=== PATIENT | female | born 1980 | race Caucasian/White ===

== ENCOUNTER 2016-05-03 00:15 | Emergency (ER) | payer MEDICAID ==
[~2016-05-03] VITALS: Ht 170.2 cm; Wt 108.9 kg
[2016-05-03 00:44] VITALS: BP 127/68
--- NOTE | 2016-05-03 01:49 | NUR ---
AMBULATED TO ER BED 3
--- NOTE | 2016-05-03 01:52 | NUR ---
PATIENT PRESENTS TO ED WITH LEFT HEAD PRESSURE AND LEFT EAR PAIN THAT RADIATES TO NECK. DENIES N/V/D; SKIN IS PINK/WARM/DRY; AAOX4 WITH EVEN AND STEADY GAIT; LUNGS CLEAR BL; HR EVEN AND REGULAR; PT DENIES ANY FEVER, CP, SOB, OR COUGH AT THIS TIME; PATIENT STATES PAIN OF 10/10 AT THIS TIME; VSS; PATIENT POSITIONED FOR COMFORT; HOB ELEVATED; BEDRAILS UP X2; BED DOWN. ER MD MADE AWARE OF PT STATUS.
--- NOTE | 2016-05-03 02:15 | NUR ---
PT IN RADIOLOGY DEPT.
[2016-05-03 03:44] VITALS: BP 124/64
--- NOTE | 2016-05-03 03:44 | NUR ---
Lula dawson in EDM - 05/03/16 at 0346 by JUDITH PATIENT ELOPED FROM FACILITY. DISCHARGE INSTRUCTIONS NOT GIVEN TO PATIENT. DR. LAINEZ NOTIFIED.
--- NOTE | 2016-05-03 03:44 | NUR ---
PT NOT IN BED, NO WHERE TO BE FOUND. LEFT WITHOUT DISCHARGE INSTRUCTIONS. DR. LAINEZ AWARE.
--- NOTE | 2016-05-03 03:49 | NUR ---
ATTEMPT TO CALL PT WITH PHONE NUMBER FROM [employer] . CALLED TWICE NO ANSWER.
--- NOTE | 2016-05-03 05:34 | NUR ---
TRIED TO CALL THE PHONE NUMBER ON THE PATIENT'S FACESHEET BUT IT DIRECTED ME RIGHT AWAY TO THE VOICEMAIL BOX. I LEFT A MESSAGE NOTIFYING THAT SHE HAS A PRESCRITPTION AND IF SHE CAN COME AND GET IT. CHARGE NURSE AWARE.
[2016-09-12] MEDS ORDERED: QUETIAPINE FUMA25 M1 PO (08:14)
== END 2016-05-03 03:44 | disposition home or self-care (01) ==
LOC: MED 00:15
DX: B37.3 Candidiasis of vulva and vagina (principal); R51 Headache; R03.0 Elevated blood-pressure reading, without diagnosis of hypertension; Z88.5 Allergy status to narcotic agent

== ENCOUNTER 2016-09-10 10:28 | Inpatient (IN) | payer MEDICAID ==
[~2016-09-10] VITALS: Ht 175.3 cm; Wt 108.9 kg
--- NOTE | 2016-09-10 10:28 | NUR ---
Dr. Uribe evaluating patient at bedside.
--- NOTE | 2016-09-10 10:28 | NUR ---
1021--Patient was BIBA and taken to bed 03 via gurney per EMS. [place] [employer] at bedside; [employer] at bedside.
[2016-09-10 10:30] VITALS: BP 133/79
[2016-09-10] MEDS ORDERED: NACL 0.9% 1,000 ML IV ONE (10:30)
--- NOTE | 2016-09-10 10:30 | NUR ---
[place] [employer] PLACED PATIENT ON 5150 HOLD
--- NOTE | 2016-09-10 10:30 | NUR ---
PATIENT FROM HOME.ALOC,WALKING OUTSIDE IN THE STREET YELLING AT EVERYBODY WHERE CARS ARE.HEARING VOICES. ABLE TO SAY HER NAME AND BIRTHDATE. NOT TAKING HER MEDS. DENIES SUICIDAL IDEATION. BS FIELD 147. HX: BIPOLAR AND SCHIZO.DENIES N/V/D; SKIN IS PINK/WARM/DRY; ALERT AND AWAKE WITH EVEN AND STEADY GAIT; LUNGS CLEAR BL; HR EVEN AND REGULAR; PT DENIES ANY FEVER, CP, SOB, OR COUGH AT THIS TIME; PATIENT STATES PAIN OF 0/10 AT THIS TIME;PATIENT POSITIONED FOR COMFORT; HOB ELEVATED; BEDRAILS UP X2; BED DOWN.
--- NOTE | 2016-09-10 10:41 | NUR ---
XRAY at bedside.
--- NOTE | 2016-09-10 10:46 | NUR ---
Security at bedside to collect belongings.
[2016-09-10 11:36] LABS: BASOPHILS # (AUTO) 0.2 K/uL (0.00-0.22); BASOPHILS % (AUTO) 1.2 % (0.0-2.0); EOSINOPHILS # (AUTO) 0.4 K/uL (0-0.4); HEMATOCRIT 34.2 % (36-48); HEMOGLOBIN 11.7 g/dL (12.0-16.0); LYMPHOCYTES # (AUTO) 1.8 K/uL (2.5-16.5); LYMPHOCYTES % (AUTO) 13.8 % (20.5-51.1); MEAN CORPUSCULAR HEMOGLOBIN 28 pg (27-31); MEAN CORPUSCULAR HGB CONC 34 g/dL (33-37); MEAN CORPUSCULAR VOLUME 83 fL (80-94); MONOCYTES # (AUTO) 0.8 K/uL (0.8-1.0); MONOCYTES % (AUTO) 5.8 % (1.7-9.3); NEUTROPHILS # (AUTO) 9.9 K/uL (1.8-7.7); NEUTROPHILS % (AUTO) 76.2 % (42.2-75.2); PLATELET COUNT (AUTO) 255 K/uL (140-450); RED BLOOD CELL COUNT(AUTO) 4.13 MIL/uL (4.20-5.40); RED CELL DISTRIBUTION WIDTH 13.5 % (11.6-13.7); WHITE BLOOD COUNT (AUTO) 13.1 K/uL (4.8-10.8)
--- NOTE | 2016-09-10 11:44 | NUR ---
PT REFUSED TO GIVE URINE SPECIMEN.
[2016-09-10 11:48] LABS: INR 1.1 (0.8-1.2); PARTIAL THROMBOPLASTIN TIME 25.9 secs (22-35.6); PROTHROMBIN TIME 11.3 secs (10.8-13.4)
[2016-09-10 11:51] LABS: ALANINE AMINOTRANSFERASE 100 U/L (12-78); ALBUMIN 3.7 g/dL (3.4-5.0); ALCOHOL, BLOOD < 3 mg/dL (<3); ALKALINE PHOSPHATASE 73 U/L (46-116); ANION GAP 13.9 (8-16); ASPARTATE AMINOTRANSFERASE 97 U/L (15-37); BILIRUBIN,DIRECT 0.2 mg/dL (0.0-0.3); CALCIUM 8.1 mg/dL (8.5-10.1); CHLORIDE 103 mmol/L (98-107); CREATININE 0.9 mg/dL (0.6-1.3); GFR ARICAN-AMERICAN 91 mL/min (>90); GFR NON ARICAN-AMERICAN 75 mL/min (>90); GLUCOSE 99 mg/dL (74-106); SODIUM SERUM 139 mmol/L (136-145); TOTAL BILIRUBIN 0.6 mg/dL (0.0-1.0); TOTAL PROTEIN, SERUM 8.6 g/dL (6.4-8.2); UREA NITROGEN, BLOOD 16 mg/dL (7-18)
[2016-09-10 11:52] LABS: POTASSIUM 2.9 mmol/L (3.5-5.1)
[2016-09-10] MEDS ORDERED: POTASSIUM CHLORIDE 20% 40 MEQ/15 ML UDC PO ONE (12:05)
--- NOTE | 2016-09-10 12:15 | NUR ---
ON LOWER EXTREMITIES HAS RED SPOTS AND ITCHING , PT SCRATCH IT ALL THE TIME DR NETTLES INFORM .ORDER RECEIVED.
--- NOTE | 2016-09-10 12:19 | NUR ---
PT RESTING ON BED;CHECKED FOR CIRCULATION ON UPPER AND LOWER EXTREMITIES;NO COMPROMISE CIRCULATION NOTED;NO BRUISE NOTED;WILL CONTIUE TO MONITOR PT.
[2016-09-10 12:43] LABS: APPEARANCE,URINE CLEAR (CLEAR); BILIRUBIN,URINE 1+ (NEGATIVE); BLOOD, URINE 2+ (NEGATIVE); COLOR,URINE YELLOW (YELLOW); LEUKOCYTE ESTERASE ,URINE NEGATIVE (NEGATIVE); NITRITE, URINE NEGATIVE (NEGATIVE); PROTEIN,URINE TRACE (NEGATIVE); UGLUCOSE NEGATIVE (NEGATIVE); UROBILINOGEN,URINE 0.2 EU/dL (0.2 - 1)
[2016-09-10 12:57] LABS: ICTOTEST NEGATIVE (NEGATIVE)
[2016-09-10 12:58] LABS: BACTERIA,URINE 1+ /HPF (None Seen); MUCUS,URINE 3+ /LPF (None Seen); RBC,URINE 0-5 (RARE) /HPF (0-5); SQUAMOUS EPITHELIAL CELL,UR 0-3 (FEW) /LPF (0-3 (FEW)); WBC,URINE 0-5 (RARE) /HPF (0-5)
[2016-09-10 12:59] LABS: AMPHETAMINE, URINE POS. ng/ml (NEG <=1000); BARBITURATE, URINE NEG. ng/ml (NEG <=200); BENZODIAZEPINE, URINE NEG. ng/mL (NEG <=200); CANNABINOID, URINE NEG. ng/mL (NEG <=50); COCAINE, URINE NEG. ng/mL (NEG <=300); OPIATE, URINE NEG. ng/mL (NEG <=2000); PHENCYCLIDINE SCREEN,URINE NEG. ng/mL (NEG <=25)
--- NOTE | 2016-09-10 13:10 | NUR ---
PT RESTING ON BED;CHECKED RESTRAINTS;CHECKED UPPER AND LOWER EXTREMITIES;NO COMPROMISE CIRCULATION NOTED;SKIN IS INTACT.
--- NOTE | 2016-09-10 13:44 | NUR ---
RESTRAINT REMOVED;PT IS CALM AND RESTING ON BED QUIETLY;W/GOOD CIRCULATION ON UPPER AND LOWER EXTREMITIES;SKIN INTACT;PT ABLE TO MOVE ALL EXTREMITIES;WILL CONTOINUE TO MONITOR PT.
[2016-09-10] MEDS ORDERED: LORazepam 2 MG/ML VIAL IVP ONE (14:05)
[2016-09-10] MEDS ORDERED: ONDANSETRON 4 MG/2 ML VIAL IVP PRN (14:10)
[2016-09-10] MEDS ORDERED: ACETAMINOPHEN 325 MG TAB PO PRN (14:10)
[2016-09-10] MEDS ORDERED: MORPHINE SULFATE 2 MG/ML SYR IVP PRN (14:10)
--- NOTE | 2016-09-10 14:16 | NUR ---
Patient taken to CT via [facility].
--- NOTE | 2016-09-10 14:27 | NUR ---
Patient back from CT via [facility].
[2016-09-10] MEDS ORDERED: cefTRIAXone 2,000 MG in DEXTROSE 5% 100 ML IV ONE (14:30)
--- NOTE | 2016-09-10 15:01 | NUR ---
Patient will be admitted to care of DR KWOK. Admited to ICU. Will go to room 3. Belongings list completed. Report to REINA CASTANEDA.
--- NOTE | 2016-09-10 15:05 | NUR ---
RECEIVED FROM ER VIA [facility]. SHE AWAKE AND ALERT ORIENTED X3 . SHE IS UNABLE TO IDENTIFY THE DAY AND DATE. ABLE TO WALK FROM [place] TO BED. SHE IS ON ROOM AIR O2 98% . SKIN DRY AND WARM TO TOUCH COLOR IS DARK COOK ,BREATH SOUND CLEAR ABDOMEN SOFT B/S ACTIVE.
[2016-09-10 15:18] VITALS: BP 137/84
[2016-09-10 15:41] LABS: FREE T4 (FREE THYROXINE) 1.6 ng/dL (0.76-1.46); MAGNESIUM 2.1 mg/dL (1.8-2.4); PHOSPHORUS 2.7 mg/dL (2.5-4.9); THYROID STIMULATING HORMONE 1.36 uIU/mL (0.34-3.76)
[2016-09-10] MEDS ORDERED: diphenhydrAMINE 50 MG CAP PO SCH (15:46)
[2016-09-10 16:00] VITALS: BP 102/51
[2016-09-10] MEDS: NACL 0.9% 1,000 ML IV SCH (16:19)
--- NOTE | 2016-09-10 17:45 | NUR ---
SEEN BY DR. NETTLES , HE EXAM PT, AT BED SIDE . HE AWARE THAT PT, DID'T RECEIVE ROCEPINE FROM ER.. HE WILL ODER AFTER COMPLETED PT. EVALUATION.
--- NOTE | 2016-09-10 18:30 | NUR ---
SEEN BY DR. PULLIAM AT BED SIDE, KEEP PT. ON 5150 HOLD, SHE TRY TO GET INTOUCH WITH HER FAMILY FOR MORE INFORMATION.
--- NOTE | 2016-09-10 18:50 | NUR ---
VOIDED INBED WISE CLOUDY URINE WITH STRONG ODOR [address] NETTLES AWARE,
--- NOTE | 2016-09-10 19:14 | NUR ---
PT SLEEPING. REPORT GIVE TO KOJO HUANG,
--- NOTE | 2016-09-10 19:32 | NUR ---
RECEIVED REPORT FROM LUPILLO HUANG. PATIENT IS CURRENTLY RESTING IN BED, BUT CAN BE AROUSED BY NAME. OPENS EYES SPONTANEOUSLY, ABLE TO FOLLOW COMMANDS, AND MAKES NEEDS KNOWN. PATIENT IS AFEBRILE AND VITAL SIGNS ARE STABLE. NSR ON VP SECURITY. BOWEL SOUNDS ARE ACTIVE. THERE IS A #22 IN THE RIGHT AC RECEIVING NORMAL SALINE AT 100 ML/HR. SITE IS DRY, INTACT, AND ASYMPTOMATIC. SCDS ARE IN PLACE FOR VTE PROPHYLAXIS. EXPLAINED PLAN OF CARE TONIGHT TO INCLUDE MEDICATION ADMINISTRATION, VITALS, AND CARDIAC MONITORING. PATIENT VERBALIZED UNDERSTANDING. PATIENT'S NEEDS MET AT THIS TIME. HOB AT 30 DEGREES WITH BED IN LOW POSITION. WILL CONTINUE TO MONITOR PATIENT. Addendum: 09/10/16 at 2255 by Massimo Godfrey RN PATIENT IS TELEMETRY STATUS.
[2016-09-10] MEDS ORDERED: LORazepam 2 MG/ML VIAL IVP PRN (19:40)
[2016-09-10 20:00] VITALS: BP 103/58
--- NOTE | 2016-09-10 21:10 | NUR ---
NOTIFIED MACARENA TRAVIS RN THAT SCHEDULED 2100 SEROQUEL 25MG PO IS NOT AVAILABLE IN ICU. CHARGE NURSE FEI HUANG MADE AWARE. CONTINUE TO MONITOR PATIENT.
--- NOTE | 2016-09-10 21:30 | NUR ---
PATIENT RESTING COMFORTABLY IN BED. NO SIGNS OF ACUTE DISTRESS NOTED. CONTINUE TO MONITOR PATIENT.
[2016-09-10] MEDS ORDERED: QUEtiapine FUMARATE 100 MG TAB ONE (21:41)
[2016-09-10] MEDS: QUEtiapine FUMARATE 25 MG TAB PO SCH (21:51)
--- NOTE | 2016-09-10 21:54 | NUR ---
TOLERATED DUE MEDICATION. NO SIGNS OF DISTRESS OR SOB NOTED. PATIENT'S NEEDS MET AT THIS TIME. CONTINUE TO MONITOR PATIENT.
[2016-09-11] VITALS: BP 109/62
[2016-09-11] MEDS: NACL 0.9% 1,000 ML IV SCH ×3 (00:07→20:07)
--- NOTE | 2016-09-11 00:15 | NUR ---
PATIENT RESTING COMFORTABLY IN BED WITH NO ACUTE DISTRESS OR SOB NOTED. WILL CONTINUE TO MONITOR PATIENT.
[2016-09-11 04:00] VITALS: BP 115/53
--- NOTE | 2016-09-11 04:05 | NUR ---
PT RESTING IN BED WITH NO SIGNS OF ACUTE DISTRESS OR SOB NOTED. CONTINUE TO MONITOR PATIENT.
--- NOTE | 2016-09-11 05:05 | NUR ---
RUG RECEIVING CLERK AT BEDSIDE FOR SCHEDULED LAB DRAWS.
--- NOTE | 2016-09-11 06:10 | NUR ---
PATIENT IS RESTING COMFORTABLY IN BED. BREATHING IS EVEN AND UNLABORED. CONTINUE TO MONITOR PATIENT.
--- NOTE | 2016-09-11 07:32 | NUR ---
PATIENT IN STABLE CONDITION. ENDORSED CONTINUITY OF CARE TO LEX HUANG.
[2016-09-11 07:47] LABS: BASOPHILS # (AUTO) 0.2 K/uL (0.00-0.22); BASOPHILS % (AUTO) 1.5 % (0.0-2.0); EOSINOPHILS # (AUTO) 0.4 K/uL (0-0.4); EOSINOPHILS % (AUTO) 3.7 % (0.0-4.0); HEMATOCRIT 33.1 % (36-48); HEMOGLOBIN 11.1 g/dL (12.0-16.0); LYMPHOCYTES # (AUTO) 1.9 K/uL (2.5-16.5); MEAN CORPUSCULAR HEMOGLOBIN 28 pg (27-31); MEAN CORPUSCULAR HGB CONC 34 g/dL (33-37); MEAN CORPUSCULAR VOLUME 83 fL (80-94); MONOCYTES # (AUTO) 0.5 K/uL (0.8-1.0); MONOCYTES % (AUTO) 5.2 % (1.7-9.3); NEUTROPHILS % (AUTO) 70.6 % (42.2-75.2); PLATELET COUNT (AUTO) 231 K/uL (140-450); RED BLOOD CELL COUNT(AUTO) 3.99 MIL/uL (4.20-5.40); RED CELL DISTRIBUTION WIDTH 13.6 % (11.6-13.7)
[2016-09-11 08:00] VITALS: BP 121/78
--- NOTE | 2016-09-11 08:00 | NUR ---
RECEIVE PATIENT SLEEPING. EASILY AROUSABLE TO HER NAME. ALERT AND ORIENTED TO NAME PLACE AND TIME. SHE OFFERS NOT C/O DISCOMFORT AT THIS TIME. CARDIAC MONITORING SHOWS SINUS RHYTHM. PERIPHARAL PLUSE PALPABLE. NO S/S OF EDEMA BREAKFAST TRY SET UP. ABNORMAL LAB , SNOW, LEVEL 2.9. DR. DESIR IS ROUNDING AT THIS TIME AND INFORMED OF ABNORMAL LABS. ORDERS TO GIVE K-RIDER.
[2016-09-11 08:07] LABS: ANION GAP 10.7 (8-16); CALCIUM 7.4 mg/dL (8.5-10.1); CARBON DIOXIDE 26.2 mmol/L (21-32); CREATININE 0.7 mg/dL (0.6-1.3)
[2016-09-11 08:08] LABS: POTASSIUM 2.9 mmol/L (3.5-5.1)
[2016-09-11 08:09] LABS: CHOL/HDL RATIO 3.3 (1-4.5); PHOSPHORUS 2.7 mg/dL (2.5-4.9)
[2016-09-11] MEDS ORDERED: KCL 20 MEQ/WATER INJ PREMIX 200 ML IV SCH (08:15)
--- NOTE | 2016-09-11 09:00 | NUR ---
PATIENT IS NOT TOLERATING K-RIDER. . DR. DESIR CALL TO REQUEST K-RIDER WITH [facility].
[2016-09-11] MEDS: QUEtiapine FUMARATE 25 MG TAB PO SCH ×2 (09:23→21:09)
--- NOTE | 2016-09-11 10:00 | NUR ---
SLEEPING. NO S/S OF DISCOMFORT.
[2016-09-11] MEDS ORDERED: POTASSIUM ACETATE IV SCH (11:00)
[2016-09-11] MEDS ORDERED: NACL 0.9% IV SCH (11:00)
[2016-09-11] MEDS ORDERED: LIDOCAINE IV SCH (11:00)
[2016-09-11] MEDS: POTASSIUM CHLORIDE 20 MEQ, LIDOCAINE 1% 25 MG in NACL 0.9% 250 ML IV SCH ×2 (11:17→21:00)
[2016-09-11 12:00] VITALS: BP 106/69
--- NOTE | 2016-09-11 15:47 | NUR ---
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 Dr. Tomlinson notified
[2016-09-11] MEDS ORDERED: MUPIROCIN 2% OINT 22 GM TUBE TP SCH (15:51)
[2016-09-11 16:00] VITALS: BP 120/68
[2016-09-11] MEDS ORDERED: CHLORHEXADINE GLUC 2% CLOTH TP SCH (16:00)
--- NOTE | 2016-09-11 17:30 | NUR ---
OOB to bedside commode. While out of bed, dinner served. Patient will transfer to telemetry when bed is available. Dr. HoffmanAviles in to interview patient. Dr. Tomlinson informed that she want to release the 5150, [address] Dr. Tolminson want to keep her on for one more day. Patient is aware of plan of care.
--- NOTE | 2016-09-11 18:35 | NUR ---
Report given to telemetry nurse. Patient transfer to room 108A in stable condition.
--- NOTE | 2016-09-11 19:20 | NUR ---
RECEIVED PT FROM SHERINE RN PT AAOX4 SLEEPY ON TELEMETRY SR HL ON RT WRIST, HL ON RT AC AND IV FLUID ON LEFT FA SITTER AT BED SIDE INITIAL ASSESSMENT DONE
[2016-09-11 20:00] VITALS: BP 107/60
--- NOTE | 2016-09-11 21:00 | NUR ---
PT TAKEN HER MEDIC WELL RESTING ON BED; WAS CLAFIFY WITH CHARGE NURSE AND COMPLIANCE VICE PRESIDENT THAT DR PALACIOS SAID THAT PT DOES NOT MEET 5150 AND CAN BE DISCHARGE WHEN MEDICAL CLEAR
--- NOTE | 2016-09-11 22:39 | NUR ---
PT SLEEPING NOT DISTRESS NOTED ON TELEMETRY SR
[2016-09-12] VITALS: BP 94/51
--- NOTE | 2016-09-12 00:59 | NUR ---
PT REMAIN STABLE DENIES ANY PAIN OR DISCOMFORT ON TELEMETRY SR
[2016-09-12 04:00] VITALS: BP 106/55
--- NOTE | 2016-09-12 04:43 | NUR ---
PT HAS BEEN REMAIN STABLE DENIES ANY PAIN OR DISCOMFORT ON TELEMETRY SR
--- NOTE | 2016-09-12 06:06 | NUR ---
NOT DISTRESS NOTED ON TELE SR , VOIDING WELL IV ON RT AC INFUSING WELLCOOPERATIVE TO FOLLOW DR HWANG
[2016-09-12 06:28] LABS: BASOPHILS # (AUTO) 0.2 K/uL (0.00-0.22); EOSINOPHILS # (AUTO) 0.3 K/uL (0-0.4); EOSINOPHILS % (AUTO) 3.7 % (0.0-4.0); HEMATOCRIT 33.1 % (36-48); HEMOGLOBIN 10.8 g/dL (12.0-16.0); LYMPHOCYTES # (AUTO) 2.4 K/uL (2.5-16.5); MEAN CORPUSCULAR HEMOGLOBIN 27 pg (27-31); MEAN CORPUSCULAR HGB CONC 33 g/dL (33-37); MEAN CORPUSCULAR VOLUME 84 fL (80-94); MONOCYTES # (AUTO) 0.7 K/uL (0.8-1.0); MONOCYTES % (AUTO) 8.3 % (1.7-9.3); NEUTROPHILS # (AUTO) 5.2 K/uL (1.8-7.7); PLATELET COUNT (AUTO) 218 K/uL (140-450); RED BLOOD CELL COUNT(AUTO) 3.95 MIL/uL (4.20-5.40); RED CELL DISTRIBUTION WIDTH 13.6 % (11.6-13.7); WHITE BLOOD COUNT (AUTO) 8.8 K/uL (4.8-10.8)
[2016-09-12 06:43] LABS: ANION GAP 10.3 (8-16); CALCIUM 7.5 mg/dL (8.5-10.1); CARBON DIOXIDE 26.8 mmol/L (21-32); CREATININE 0.7 mg/dL (0.6-1.3); POTASSIUM 3.1 mmol/L (3.5-5.1)
--- NOTE | 2016-09-12 07:30 | NUR ---
PT AWAKE AND ALERT, NO SIGNS OF ACUTE DISTRESS. BOWEL SOUNDS ACTIVE IN ALL 4 QUADRANTS, BOWEL AND BLADDER CONTINENCE. SKIN INTACT WITH RASH ON BUTTOCKS FERMIN. AMBULATORY WITH BRP. IV PATENT AND ASYMPTOMATIC. PT DENIES PAIN AT THIS TIME. RE-ORIENTED PATIENT TO UNIT AND HOSPITAL. BED IN LOW POSITION WITH BILATERAL HALF SIDE RAILS UP, CALL LIGHT WITHIN REACH.
[2016-09-12 07:56] VITALS: BP 116/53
[2016-09-12] MEDS ORDERED: QUET25TA46 PO (08:14)
[2016-09-12] MEDS: QUEtiapine FUMARATE 25 MG TAB PO SCH (08:26)
[2016-09-12] MEDS ORDERED: MUPIROCIN 2% OINT 22 GM TUBE TP SCH (09:00)
[2016-09-12] MEDS ORDERED: POTASSIUM CHLORIDE 40 MEQ, LIDOCAINE 1% 25 MG in NACL 0.9% 250 ML IV SCH (09:00)
[2016-09-12] MEDS: NACL 0.9% 1,000 ML IV SCH (09:42)
[2016-09-12] MEDS ORDERED: BUPIVACAINE-MPF 0.25% 30 ML VIAL INJ ONE (09:57)
--- NOTE | 2016-09-12 10:25 | NUR ---
PATIENT HAS BEEN SCREENED AND CATEGORIZED LOW NUTRITION RISK. PATIENT WILL BE SEEN WITHIN 7 DAYS OF ADMISSION. 09/17/[address]
[2016-09-12 12:00] VITALS: BP 100/56
--- NOTE | 2016-09-12 13:32 | NUR ---
CM NOTE PER CASING MACHINE OPERATOR MELISSA, REVIEWS SHOULD BE SENT TO [facility] AND [facility]. FAXED INITIAL REVIEW TO [facility] [phone] PH [phone] AND TO [facility] [phone] PH [phone]
[2016-09-12 16:00] VITALS: BP 106/58
--- NOTE | 2016-09-12 16:59 | NUR ---
PT AWAKE AND ALERT, NO SIGNS OF ACUTE DISTRESS. EDUCATED PATIENT ON DISCHARGE INSTRUCTIONS, INCLUDING FOLLOW UP WITH PCP WITHIN 3-5 DAYS, NEW PRESCRIPTION, SIGNS/SYMPTOMS OF WORSENING CONDITION AND/OR INFECTION, AND INFORMATION ON HOMELESS PENITENTIARY AND CARE. PT VERBALIZED UNDERSTANDING. D/C'D IV AND TELE MONITOR, CUT OFF WRIST BANDS, GAVE PATIENT A BUS PASS. WALKED PT OUT TO FRONT LOBBY TO D/C VIA PUBLIC BUS.
== END 2016-09-12 16:59 | disposition home or self-care (01) | DRG 812 ==
LOC: MED 10:28 → MIC 14:07 → MTU 09-11 18:30
PROVIDERS: ADMIT Family Medicine; ATTEND Family Medicine
DX: T43.622A Poisoning by amphetamines, intentional self-harm, initial encounter (principal); N17.0 Acute kidney failure with tubular necrosis; G92 Toxic encephalopathy; N39.0 Urinary tract infection, site not specified; D64.9 Anemia, unspecified; E11.9 Type 2 diabetes mellitus without complications; F15.10 Other stimulant abuse, uncomplicated; R74.0 Nonspecific elevation of levels of transaminase and lactic acid dehydrogenase [LDH]; E87.6 Hypokalemia; E05.80 Other thyrotoxicosis without thyrotoxic crisis or storm; F25.0 Schizoaffective disorder, bipolar type; F17.210 Nicotine dependence, cigarettes, uncomplicated; Z88.5 Allergy status to narcotic agent; Z56.0 Unemployment, unspecified; Z72.89 Other problems related to lifestyle; Y92.89 Other specified places as the place of occurrence of the external cause
CPT/HCPCS: 36415; 70450; 71010; 80048; 80053; 80076; 80305; 81001; 82150; 83036; 83605; 83690; 83735; 83880; 84100; 84439; 84443; 85025; 85610; 85730; 87081; 87086; 93005; 96361; 96374; 99285; C1758; G0482; J0696; J2001; J2060; J3480; J3490; J7030; J7060; Q0092; Q0163

== ENCOUNTER 2017-10-15 13:17 | Emergency (ER) | payer MEDICAID ==
[~2017-10-15] VITALS: Ht 167.6 cm; Wt 99.8 kg
[~2017-10-15 13:17] MED LIST: QUET25TA46 PO
[2017-10-15 13:32] VITALS: BP 104/69
[2017-10-15] MEDS ORDERED: cefTRIAXone 1,000 MG in LIDOCAINE 1% ***ER ONLY *** 2.1 ML IM ONE (14:15)
[2017-10-15] MEDS ORDERED: IBUPROFEN 600 MG TAB PO ONE (14:15)
[2017-10-15] MEDS ORDERED: cefTRIAXone 1,000 MG VIAL ONE (14:29)
[2017-10-15] MEDS ORDERED: IBUPROFEN 800 MG TAB ONE (14:30)
[2017-10-15] MEDS ORDERED: LIDOCAINE MPF 1% - 5 mL VIAL 5 ML ONE ×2 (14:31→14:44)
[2017-10-15] MEDS ORDERED: BACITRACIN OINT 500 UNITS/GM PKT TP ONE ×3 (15:15→15:37)
[2017-10-15] MEDS ORDERED: LIDOCAINE MPF 1% 5mL VIAL INJ ONE (15:20)
[2017-10-15 16:01] VITALS: BP 121/69
== END 2017-10-15 16:01 | disposition home or self-care (01) ==
LOC: MED 13:17
DX: S51.811A Laceration without foreign body of right forearm, initial encounter (principal); Z91.09 Other allergy status, other than to drugs and biological substances; Z88.5 Allergy status to narcotic agent; X58.XXXA Exposure to other specified factors, initial encounter; Y93.89 Activity, other specified; Y92.89 Other specified places as the place of occurrence of the external cause; Y99.8 Other external cause status
CPT/HCPCS: 12002; 96372; 99283; J0696; J2001

== ENCOUNTER 2017-10-31 16:32 | Emergency (ER) | payer MEDICAID ==
[~2017-10-31] VITALS: Ht 167.6 cm; Wt 99.8 kg
[2017-10-31 16:59] VITALS: BP 128/78
--- NOTE | 2017-10-31 17:05 | NUR ---
PATIENT PRESENTS TO ED FOR STAPLE REMOVAL. SKIN AROUND SUTURES APPEARS RED BUT INTACT. SKIN IS PINK/WARM/DRY; AAOX4 WITH EVEN AND STEADY GAIT; PATIENT STATES PAIN OF 0/10 AT THIS TIME; VSS; PATIENT POSITIONED FOR COMFORT; HOB ELEVATED; BEDRAILS UP X1; BED DOWN. ER MD MADE AWARE OF PT STATUS.
[2017-10-31 17:35] VITALS: BP 128/79
--- NOTE | 2017-10-31 17:36 | NUR ---
Patient discharged with v/s stable. Written and verbal after care instructions given and explained. Patient verbalized understanding. Ambulatory with steady gait. All questions addressed prior to discharge. Advised to follow up with PMD.
== END 2017-10-31 17:36 | disposition home or self-care (01) ==
LOC: MED 16:32
DX: S51.811D Laceration without foreign body of right forearm, subsequent encounter (principal); X58.XXXD Exposure to other specified factors, subsequent encounter
CPT/HCPCS: 99283

== ENCOUNTER 2018-05-06 12:56 | Emergency (ER) | payer MEDICAID ==
[~2018-05-06] VITALS: Ht 170.2 cm; Wt 106.8 kg
[2018-05-06 13:07] VITALS: BP 119/77
--- NOTE | 2018-05-06 13:11 | NUR ---
PT AMBULATES TO BED 2
--- NOTE | 2018-05-06 13:13 | NUR ---
37Y/F BIB SELF WITH C/O NON RADIATING LOWER MID ABDOMINAL PAIN WITH PAINFUL URINATION X 1 WK. PER PT S/S SIMILAR WHEN SHE WAS TREATED WITH SYPHILIS LAST FEBRUARY. LBM; YESTERDAY, - BLODDY STOOL, BS ACTIVE X 4 QUAD, SOFT AND TENDER. PT IS AAOX4, VSS AT THIS TIME, BED DOWN, LOW, LOCKED, BEDRAIL UP X 1, ER MD AWARE AND NOTIFIED OF PT STATUS. HX; DENIES RX; DENIES
--- NOTE | 2018-05-06 15:02 | NUR ---
Patient being evaluated by physician at bedside.
--- NOTE | 2018-05-06 15:02 | NUR ---
VAG SWAB DONE AND GIVEN TO LAB
[2018-05-06] MEDS ORDERED: AZITHROMYCIN 250 MG TAB PO ONE (15:50)
[2018-05-06] MEDS ORDERED: cefTRIAXone 250 MG in LIDOCAINE MPF 1% - 5 mL VIAL 0.9 ML IM ONE (15:50)
[2018-05-06 17:15] VITALS: BP 120/79
[2018-05-08 06:16] LABS: CHLAMYDIA TRACHOMATIS AMP DNA Negative (Negative)
== END 2018-05-06 17:15 | disposition home or self-care (01) ==
LOC: MED 12:56
DX: N76.0 Acute vaginitis (principal); Z79.899 Other long term (current) drug therapy; Z88.5 Allergy status to narcotic agent
CPT/HCPCS: 36415; 81002; 81025; 87210; 87491; 96372; 99283; J0696; J2001; J7060

== ENCOUNTER 2018-06-10 10:51 | Emergency (ER) | payer MEDICAID ==
[~2018-06-10] VITALS: Ht 170.2 cm; Wt 111.3 kg
[2018-06-10 11:08] VITALS: BP 115/61
--- NOTE | 2018-06-10 11:08 | NUR ---
37 Y F BIB SELF C/O FLANK PAIN AND VAGINAL DISCHARGE SINCE FEARY. PAIN 09/26. PT STATES SHE HAS VAGINAL ITCHING, THICK WHITE DISCHARGE, AND FOUL ODOR. PT ALSO REPORTS A MISSED PERIOD FOR 6 MONTHS. URINE COLLECTED. BED IS DOWN, LOCKED, BED RAIL X 1, ERMD NOTIFIED. PMH-NONE MEDS-NONE
--- NOTE | 2018-06-10 11:11 | NUR ---
PATIENT AMBULATED TO BED 3
--- NOTE | 2018-06-10 11:30 | NUR ---
ASSISTED IN PELVIC EXAM COMPLETED BY DR BA
--- NOTE | 2018-06-10 14:05 | NUR ---
PT IN BED SLEEPING
--- NOTE | 2018-06-10 14:14 | NUR ---
LAB AT BEDSIDE
[2018-06-10 14:28] LABS: BASOPHILS % (AUTO) 0.3 % (0.0-2.0); EOSINOPHILS # (AUTO) 0.1 K/uL (0-0.4); EOSINOPHILS % (AUTO) 1.4 % (0.0-4.0); HEMATOCRIT 38.9 % (36-48); HEMOGLOBIN 13.3 g/dL (12.0-16.0); LYMPHOCYTES # (AUTO) 2.3 K/uL (2.5-16.5); LYMPHOCYTES % (AUTO) 29.5 % (20.5-51.1); MEAN CORPUSCULAR HEMOGLOBIN 29 pg (27-31); MEAN CORPUSCULAR HGB CONC 34 g/dL (33-37); MONOCYTES # (AUTO) 0.4 K/uL (0.8-1.0); MONOCYTES % (AUTO) 4.7 % (1.7-9.3); NEUTROPHILS # (AUTO) 4.9 K/uL (1.8-7.7); NEUTROPHILS % (AUTO) 64.1 % (42.2-75.2); PLATELET COUNT (AUTO) 240 K/uL (140-450); RED BLOOD CELL COUNT(AUTO) 4.58 MIL/uL (4.20-5.40); RED CELL DISTRIBUTION WIDTH 13.5 % (11.6-13.7); WHITE BLOOD COUNT (AUTO) 7.7 K/uL (4.8-10.8)
[2018-06-10 14:38] LABS: ANION GAP 13.5 (8-16); CARBON DIOXIDE 26.5 mmol/L (21-32); CREATININE 0.8 mg/dL (0.6-1.3)
[2018-06-10 14:42] LABS: PROTHROMBIN TIME 10.4 secs (10.8-13.4)
[2018-06-10 14:44] LABS: ALBUMIN 3.3 g/dL (3.4-5.0); TOTAL BILIRUBIN 0.3 mg/dL (0.0-1.0)
[2018-06-10 14:46] LABS: APPEARANCE,URINE CLOUDY (CLEAR); BILIRUBIN,URINE NEGATIVE (NEGATIVE); BLOOD, URINE 1+ (NEGATIVE); COLOR,URINE YELLOW (YELLOW); LEUKOCYTE ESTERASE ,URINE NEGATIVE (NEGATIVE); NITRITE, URINE NEGATIVE (NEGATIVE); UGLUCOSE NEGATIVE (NEGATIVE)
[2018-06-10 15:19] LABS: RBC,URINE 0-5 /HPF (0-5); URINE AMORPHOUS URATE 3+ /HPF (None Seen); WBC,URINE 0-5 /HPF (0-5)
[2018-06-10 15:34] VITALS: BP 113/70
[2018-06-13 06:29] LABS: CHLAMYDIA TRACHOMATIS AMP DNA Negative (Negative)
== END 2018-06-10 15:35 | disposition home or self-care (01) ==
LOC: MED 10:51
DX: D25.9 Leiomyoma of uterus, unspecified (principal); Z88.5 Allergy status to narcotic agent
CPT/HCPCS: 36415; 76856; 80053; 81001; 81025; 85025; 85610; 85730; 87210; 99284; Q0092; 87491

== ENCOUNTER 2018-08-04 17:11 | Emergency (ER) | payer MEDICAID ==
[~2018-08-04] VITALS: Ht 167.6 cm; Wt 106.6 kg
[2018-08-04 17:18] VITALS: BP 103/78
--- NOTE | 2018-08-04 17:22 | NUR ---
TO ED 02 WITH STEADY GAIT
[2018-08-04] MEDS ORDERED: RISP0.5T3 PO (17:25)
--- NOTE | 2018-08-04 17:25 | NUR ---
37 Y FEMALE C/O ABDOMINAL PAIN TO LUQ ALSO REPORTING R ARM TINGLING X 1 DAY. DENIES N/V OR FEVER. PAIN 12/27. PT STATES SOME DAYS DAYS SHE EXPERIENCES DIARRHEA AND OTHER DAYS SHE HAS CONSTIPATION. STATES SHE ATE HALF A SLICE OF PIZZA TODAY AND FELT DIZZY AFTERWARDS. STATES SHE HAD DYSURIA ON MOTHERS DAY BUT DENIES AT THIS TIME. VSS. PT IS ALERT AND ORIENTED X 4. BED IS DOWN, LOCKED, BED RAIL X 1, ERMD TO SEE PT. PMH- GALLBLADDER REMOVAL, PTSD
--- NOTE | 2018-08-04 17:26 | NUR ---
DR LAINEZ AT BEDSIDE FOR PT EVALUATION
[2018-08-04] MEDS ORDERED: NACL 0.9% 500 ML IV ONE (17:30)
[2018-08-04] MEDS ORDERED: KETOROLAC 30 MG/ML VIAL IVP ONE (17:30)
--- NOTE | 2018-08-04 17:43 | NUR ---
LAB AT BEDSIDE TO DRAW BLOOD.
--- NOTE | 2018-08-04 17:48 | NUR ---
CT HERE TO TAKE PATIENT.
[2018-08-04 17:58] LABS: APPEARANCE,URINE CLEAR (CLEAR); BILIRUBIN,URINE NEGATIVE (NEGATIVE); BLOOD, URINE 1+ (NEGATIVE); COLOR,URINE YELLOW (YELLOW); LEUKOCYTE ESTERASE ,URINE NEGATIVE (NEGATIVE); NITRITE, URINE NEGATIVE (NEGATIVE); UGLUCOSE NEGATIVE (NEGATIVE)
[2018-08-04 17:59] LABS: BASOPHILS # (AUTO) 0.1 K/uL (0.00-0.22); BASOPHILS % (AUTO) 0.6 % (0.0-2.0); EOSINOPHILS # (AUTO) 0.1 K/uL (0-0.4); EOSINOPHILS % (AUTO) 1.2 % (0.0-4.0); HEMATOCRIT 38.7 % (36-48); HEMOGLOBIN 13.2 g/dL (12.0-16.0); LYMPHOCYTES # (AUTO) 2.7 K/uL (2.5-16.5); LYMPHOCYTES % (AUTO) 27.2 % (20.5-51.1); MEAN CORPUSCULAR HEMOGLOBIN 29 pg (27-31); MEAN CORPUSCULAR HGB CONC 34 g/dL (33-37); MEAN CORPUSCULAR VOLUME 86.7 fL (80-94); MONOCYTES # (AUTO) 0.6 K/uL (0.8-1.0); MONOCYTES % (AUTO) 5.8 % (1.7-9.3); NEUTROPHILS # (AUTO) 6.6 K/uL (1.8-7.7); NEUTROPHILS % (AUTO) 65.2 % (42.2-75.2); PLATELET COUNT (AUTO) 269 K/uL (140-450); RED BLOOD CELL COUNT(AUTO) 4.47 MIL/uL (4.20-5.40); RED CELL DISTRIBUTION WIDTH 13.8 % (11.6-13.7); WHITE BLOOD COUNT (AUTO) 10.1 K/uL (4.8-10.8)
--- NOTE | 2018-08-04 18:01 | NUR ---
PT RETURNED FROM CT, ALERT AND ORIENTED
--- NOTE | 2018-08-04 18:03 | NUR ---
PAIN 5/10 AT THIS TIME
[2018-08-04 18:09] LABS: ALBUMIN 3.8 g/dL (3.4-5.0); ANION GAP 11.2 (8-16); CARBON DIOXIDE 29.5 mmol/L (21-32); CREATININE 0.9 mg/dL (0.6-1.3); POTASSIUM 3.7 mmol/L (3.5-5.1); TOTAL BILIRUBIN 0.3 mg/dL (0.0-1.0)
[2018-08-04 18:28] LABS: RBC,URINE 0-5 /HPF (0-5); WBC,URINE 0-5 /HPF (0-5)
--- NOTE | 2018-08-04 18:30 | NUR ---
DR LAINEZ AT BEDSIDE RE-EVALUATING PT
[2018-08-04 18:48] VITALS: BP 117/82
--- NOTE | 2018-08-04 18:48 | NUR ---
Patient discharged with v/s stable. Written and verbal after care instructions given and explained. Patient alert, oriented and verbalized understanding of instructions. Ambulatory with steady gait. All questions addressed prior to discharge. ID band removed. Patient advised to follow up with PMD. Rx of TRAMODOL HYDROCHLORIDE, MOTRIN given. Patient educated on indication of medication including possible reaction and side effects. Opportunity to ask questions provided and answered. PT GIVEN AN EXCUSE FOR WORK THROUGH MONDAY. PT GIVEN A REFERRAL TO [facility] AND COPY OF CT RESULTS.
== END 2018-08-04 18:48 | disposition home or self-care (01) ==
LOC: MED 17:11
DX: S20.212A Contusion of left front wall of thorax, initial encounter (principal); D25.9 Leiomyoma of uterus, unspecified; R51 Headache; R19.7 Diarrhea, unspecified; Z88.5 Allergy status to narcotic agent; Z79.899 Other long term (current) drug therapy; Z90.49 Acquired absence of other specified parts of digestive tract; X58.XXXA Exposure to other specified factors, initial encounter; Y93.89 Activity, other specified; Y92.89 Other specified places as the place of occurrence of the external cause; Y99.8 Other external cause status
CPT/HCPCS: 36415; 71045; 74176; 80053; 81001; 81025; 85025; 87040; 96361; 96374; 99284; J1885; J7030; Q0092

== ENCOUNTER 2018-10-28 06:31 | Emergency (ER) | payer MEDICAID ==
[~2018-10-28] VITALS: Ht 162.6 cm; Wt 90.7 kg
[2018-10-28 06:31] VITALS: BP 134/69
[~2018-10-28 06:31] MED LIST changes: -QUET25TA46 PO; +RISP0.5T3 PO
--- NOTE | 2018-10-28 06:31 | NUR ---
PT BALJEET LOVETT, PREBOOK. TAKEN TO CHAIR E
[2018-10-28 06:55] VITALS: BP 134/69
--- NOTE | 2018-10-28 06:56 | NUR ---
PATIENT EXAMINED BY DR. OH. PATIENT MEDICALLY CLEARED AND RELEASED IN CUSTODY IN STABLE CONDITION. ORIGINAL PRE-BOOK FORM GIVEN TO LOS LOVETT.
== END 2018-10-28 06:56 ==
LOC: MED 06:31
DX: Z02.89 Encounter for other administrative examinations (principal); Z88.5 Allergy status to narcotic agent; Z79.899 Other long term (current) drug therapy
CPT/HCPCS: 82948; 99283

== ENCOUNTER 2019-02-12 01:45 | Emergency (ER) | payer MEDICAID ==
[~2019-02-12] VITALS: Ht 170.2 cm; Wt 104.3 kg
[2019-02-12 01:45] VITALS: BP 115/81
--- NOTE | 2019-02-12 01:45 | NUR ---
JANUSZ LOVETT, PREBOOK. TAKEN TO CHAIR C
--- NOTE | 2019-02-12 01:50 | NUR ---
Dr. Angulo examining patient.
[2019-02-12 02:05] VITALS: BP 115/81
--- NOTE | 2019-02-12 02:05 | NUR ---
PATIENT BIB [employer]. PATIENT EXAMINED BY DR. OH. PATIENT MEDICALLY CLEARED AND RELEASED IN CUSTODY IN STABLE CONDITION. ORIGINAL PRE-BOOK FORM GIVEN TO OFFICER Miranda POLANCO 400.
== END 2019-02-12 02:05 ==
LOC: MED 01:45
DX: Z02.89 Encounter for other administrative examinations (principal); Z88.5 Allergy status to narcotic agent; Z79.899 Other long term (current) drug therapy
CPT/HCPCS: 99283

== ENCOUNTER 2019-11-04 20:08 | Emergency (ER) | payer MEDICAID ==
[~2019-11-04] VITALS: Ht 170.2 cm; Wt 108.9 kg
[2019-11-04 20:20] VITALS: BP 144/58
--- NOTE | 2019-11-04 20:29 | NUR ---
URINE SPECIMEN PROVIDED. PT AMBULATED LOBBY TO A/W BED.
[2019-11-04] MEDS ORDERED: KETOROLAC 30 MG/ML VIAL IM ONE (21:40)
--- NOTE | 2019-11-04 21:46 | NUR ---
X-Ray at bedside.
--- NOTE | 2019-11-04 21:47 | NUR ---
XR AT BEDSIDE.
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
--- NOTE | 2019-11-04 22:34 | NUR ---
ANKLE STIRRUP SPLINT PLACED ON PT L ANKLE., ADJUSTED TO PT SIZE. +CSM
--- NOTE | 2019-11-04 22:35 | NUR ---
PT GIVEN INSTRUCTION ON PROPER USE OF CRUTCHES. FITTED TO PT HEIGHT AND ARM LENGTH. PT GIVEN INSTRUCTION ON WALKING WITH CRUTCHES, DEMONSTRATED SAFE USE FOR APPROXIMATELY 40 FEET, PT STATED SHE FELT SAFE WITH APPLICATION.
[2019-11-04 22:50] VITALS: BP 117/69
--- NOTE | 2019-11-04 22:50 | NUR ---
Patient given written and verbal discharge instructions and verbalizes understanding. Given copies of tests performed during visit. Patient is awake, alert and oriented. Ambulatory with steady gait. offerED LIST of mcc placementS. Given list of available shelters in surrounding areas.
--- NOTE | 2019-11-04 22:50 | NUR ---
Patient discharged with v/s stable. Written and verbal after care instructions given and explained. Patient alert, oriented and verbalized understanding of instructions. Ambulatory with CRUTCHES AND steady gait. All questions addressed prior to discharge. ID band removed. Patient advised to follow up with PMD. Rx of IBUPROFEN given. Patient educated on indication of medication including possible reaction and side effects. Opportunity to ask questions provided and answered.
== END 2019-11-04 22:50 | disposition home or self-care (01) ==
LOC: MED 20:08
DX: S96.812A Strain of other specified muscles and tendons at ankle and foot level, left foot, initial encounter (principal); F15.10 Other stimulant abuse, uncomplicated; Z79.899 Other long term (current) drug therapy; Z88.5 Allergy status to narcotic agent; X58.XXXA Exposure to other specified factors, initial encounter; Y93.89 Activity, other specified; Y92.89 Other specified places as the place of occurrence of the external cause; Y99.8 Other external cause status
CPT/HCPCS: 29515; 73610; 96372; 99283; J1885